=== PATIENT | male | born 1995 | race Caucasian/White ===

== ENCOUNTER 2019-08-28 21:51 | Emergency (ER) | payer BC, SELFPAY ==
[2019-08-28 22:30] LABS: Clarity Clear (Clear); Mucous/LPF Rare LPF (<2+); RBC/HPF 0-3 HPF (0-3); Squamous Epithelial None Seen HPF (0-3); WBC/HPF 0-3 HPF (0-3)
[2019-08-28 22:32] LABS: Bilirubin Unable to Interpret (Negative); Blood, Urine Unable to Interpret (Negative); Leukocyte Unable to Interpret Leu/uL (Negative); Nitrite Unable to Interpret (Negative); Protein, Urine (Dipstick) Unable to Interpret mg/dL (Neg-Trace); Urobilinogen UNABLE TO INTERPRET mg/dL (Less than 2)
[2019-08-28 22:33] LABS: Glucose, Urine (Dipstick) Unable to Interpret mg/dL (Negative)
[2019-08-28 22:38] LABS: Bacteria/HPF Rare-Few HPF (None Seen)
== END 2019-08-28 23:12 | disposition home or self-care (01) ==
LOC: ERS 21:51
DX: R30.0 Dysuria (principal)
CPT/HCPCS: 81003; 81015; 87086; 99283